=== PATIENT | female | born 1990 | race Caucasian/White ===

== ENCOUNTER 2020-06-28 01:19 | Emergency (ER) | payer MEDICAID, SELFPAY ==
[2020-06-28 01:24] VITALS: BP 129/75; PULSE 88; RESP 18; TEMP 37.4; O2SAT 99; BMI 21.1
--- NOTE | 2020-06-28 01:34 | US_ITS ---
WS: [id number] ULTRASOUND RENAL TECHNIQUE: Ultrasound examination of both kidneys. CLINICAL INFORMATION: kidney COMPARISON: None. FINDINGS: RIGHT: Right kidney is normal in size and appearance. Echogenicity: Normal. Cortical thickness: 1.2 cm; Normal. Hydronephrosis: None. Perinephric fluid: None. Right kidney measures: 11.6 cm x 5.1 cm x 5.2 cm. LEFT: Simple left renal cyst upper pole measuring 3.4 x 3.3 cm Left kidney is normal in size and appearance. Echogenicity: Normal. Cortical thickness: 1.4 cm; Normal. Hydronephrosis: None. Perinephric fluid: None. Left kidney measures: 10.5 cm x 5.6 cm x 6.4 cm. Normal visualized aorta. US/US renal BI* [id number] IMPRESSION: Normal kidneys and bladder. No hydronephrosis.
--- NOTE | 2020-06-28 01:34 | US_ITS ---
WS: [id number] ULTRASOUND EARLY TECHNIQUE: Transabdominal sonography of the pelvis was performed. Followed by transvaginal sonography to better evaluate the uterus and ovaries. CLINICAL INFORMATION: abd pain LMP: 04/23/2020 Beta hCG: Unknown. COMPARISON: None. FINDINGS: UTERUS AND GESTATIONAL SAC Intrauterine gestations: Estimated gestational age: 9w0d Yolk sac: 0.5 cm. Gilmer rump length (CRL): 2.3 cm. heart motion: 157 BPM. Subchorionic hemorrhage: None. OVARIES Right ovary: Normal. Left ovary: Normal. FREE FLUID None. 2. Estimated gestational age: 9w0d 3. Normal visualized cardiac activity. 4. Adnexa are normal. US/US OB <= 14 weeks fetus [id number] IMPRESSION: 1. Single live intrauterine .
--- NOTE | 2020-06-28 01:35 | ED_ITS ---
HPI - Female Genitourinary General: Chief complaint: Urogenital-Female Stated complaint: poss kidney infection/9 weeks Time Seen by Provider: 06/28/20 01:27 Source: patient Mode of arrival: ambulatory Limitations: no limitations History of Present Illness: HPI Narrative: 29-year-old female who is currently 9 weeks states she started having left flank pain yesterday. She states she has had pain with urination along with nausea and vomiting. States pain is sharp in nature and rates it an 8 out of 10. She has no history of kidney stones. Denies any worsening or improving factors. Associated symptoms: Reports abdominal pain and nausea; Deny headache(s) Review of Systems Const: Denies: fever(s), chills, body aches or change in appetite Eyes: Denies: blurry vision or eye discomfort ENMT: Denies: throat pain or dental pain Card: Denies: chest pain Resp: Denies: dyspnea GI: Reports: abdominal pain, nausea and vomiting : Reports: flank pain Musc: Denies: neck pain or back pain Skin/Breast: Denies: rash Neuro: Denies: headache(s) Psych: Denies: depression Brendon/Lymph: Denies: easy bruising All/Imm: Denies: urticaria Physical Exam Const: COMMON NORMALS: no acute distress, patient oriented x3 and healthy marisela earing HENMT: COMMON NORMALS: normocephalic and atraumatic HEAD & SCALP: normocephalic and atraumatic Eye: COMMON NORMALS: Equal, round and reactive pupils present and EOMs intact bilaterally PUPIL: Yes Equal, round and reactive pupils present Neck/C-Spine: COMMON NORMALS: full ROM and supple Chest: COMMONS NORMALS: normal inspection of the chest and normal palpation of entire chest wall Resp: COMMON NORMALS: normal respiratory effort, No retractions, No use of accessory muscles and clear to auscultation bilaterally AUSCULTATION: clear to auscultation bilaterally Cardio: COMMON NORMALS: regular rate, regular rhythm and No murmurs present (Cardio) RATE: regular rate RHYTHM: regular rhythm GI: COMMON NORMALS: Normal to inspection, nondistended, normoactive bowel sounds present, Soft to palpation, non-tender and no masses PALPATION: Yes Soft to palpation : COMMON NORMALS: No no CVA tenderness (left flank tenderness) BLADDER/KIDNEY EXAM: No no CVA tenderness (left flank tenderness) Back/Pelvis: COMMON NORMALS: negative for no CVA tenderness (left flank tenderness) Extremity: COMMON NORMALS: normal to inspection and full ROM Neuro: COMMON NORMALS: patient oriented x3, moves all extremities and no focal motor deficits Psych: COMMON NORMALS: mental status grossly normal, Normal thought process present and cooperative THOUGHT PROCESS: Normal thought process present Skin: COMMON NORMALS: no rashes or lesions noted and no wounds GENERAL SKIN EXAM: no rashes or lesions noted Course Vital Signs: Vital signs: Vital Signs Temperature 99.4 F 06/28/20 01:24 Pulse Rate 88 06/28/20 03:19 Respiratory Rate 18 06/28/20 03:19 Blood Pressure 106/68 06/28/20 03:19 Pulse Oximetry 99 06/28/20 03:19 MDM - Female MDM Narrative: Medical decision making narrative: Deb presents here with flank pain and does have a urinary tract infection. Ultrasound showed no hydro- with no signs of kidney stone. Patient abdominal exam is benign and she has no signs appendicitis. She is to follow-up with primary care doctor as scheduled in 1 day. We will start her on Keflex. She is to return if worsening. Lab Data: Labs: Lab Results 06/28/20 06/28/20 06/28/20 Range/Units 01:26 01:46 01:46 WBC 12.8 H (4.0-10.0) 10^3/ uL RBC 3.62 L (4.1-5.3) 10^6/u L Hgb 10.9 L (11.5-15.3) g/dL Hct 33.8 L (37.0-47.0) % MCV 93.4 (81-99) fL MCH 30.1 (28.0-34.0) pg MCHC 32.2 (30.0-36.0) g/dL RDW 13.2 (12.1-15.1) % Plt Count 275 (130-400) 10^3/c mm MPV 10.8 H (7.4-10.4) fL Neut % (Auto) 80.9 % Lymph % (Auto) 11.1 % [place] % (Auto) 7.1 % Eos % (Auto) 0.4 % Baso % (Auto) 0.2 % Neut # (Auto) 10.33 H (1.8-7.7) 10^3/u L Lymph # (Auto) 1.4 (0.8-4.8) 10^3/u L [place] # (Auto) 0.9 (0.2-0.9) 10^3/u L Eos # (Auto) 0.1 (0.0-0.8) 10^3/u L Baso # (Auto) 0.0 (0.0-0.1) 10^3/u L Nucleated RBC % (a uto) 0 % Nucleated RBCs # 0.0 /100WBC Sodium 133 L (136-145) mmol/L Potassium 3.7 (3.5-5.1) mmol/L Chloride 100 (98-107) mmol/L Carbon Dioxide 23 (22-29) mmol/L Anion Gap 13.7 (5-19) BUN 5 L (6-20) mg/dL Creatinine 0.4 L (0.5-0.9) mg/dL GFR Calculation 191.5 H (90-130) mL/min Glucose 96 (65-115) mg/dL Calculated Osmolal ity 272 L (285-295) mOsm/k g Calcium 8.6 (8.5-10.5) mg/dL Total Bilirubin 0.2 (0.15-1.2) mg/dL AST 15 (0-32) U/L ALT 10 (0-33) U/L Alkaline Phosphata se 36 (35-105) IU/L Total Protein 6.8 (6.6-8.7) g/dL Albumin 4.4 (3.5-5.2) g/dL Globulin 2.4 (1.3-4.6) g/dL Lipase 13 (13-60) U/L Urine Color Yellow (Yellow) Urine Appearance Cloudy (CLEAR) Urine pH 7 (5-7) Ur Specific Gravit y 1.010 (1.005-1.030) Urine Protein Neg (Negative) Urine Glucose (UA) Norm (Normal) Urine Ketones Negative (Negative) Urine Blood 2+ H (Negative) Urine Nitrate Negative (Negative) Urine Bilirubin Neg (NEGATIVE) Urine Urobilinogen Norm (Negative) mg/dL Ur Leukocyte Marguerite ase 1+ H (Negative) Urine RBC 0-4 H (0-2) /hpf Urine WBC 5-10 H (0-5) /hpf Ur Squamous Epith Cells 5-10 H (0-5) Amorphous Sediment 1+ Urine Bacteria 1+ H (NONE) Discharge Plan Discharge Patient Disposition: Home Clinical Impression: Urinary tract infection Qualifiers: Urinary tract infection type: acute cystitis Hematuria presence: without hematuria Qualified Code(s): N30.00 - Acute cystitis without hematuria Condition: Stable Prescriptions: [place] 5-325 mg tablet 1 tab PO Q6H PRN (Reason: pain) Qty: 8 RF: 0 Keflex 500 mg capsule 500 mg PO Q6H 7 Days Qty: 28 RF: 0 ondansetron 4 mg tablet,disintegrating 4 mg PO Q6H PRN (Reason: nausea and vomiting) Qty: 14 RF: 0 Discharge Orders: Discharge Order (Routine); Ordered 06/28/20 Ordered By: Isabela Disla Referrals: Levi Guerin MD [Primary Care Provider] - 1-3 days Discharge Diet: Advance as tolerated Discharge Activity: Resume usual activity Patient Instructions: Urinary Tract Infection in Women (ED) Discharge Date/Time: 06/28/20 03:22 Coding Level of Care Code ED Test Engine Mechanic for Chg Fwd Exam Comprehensive
[2020-06-28] MEDS: diphenhydrAMINE 50 mg/mL SDV 1mL IVP (01:49)
[2020-06-28] MEDS: metoclopramide 5 mg/mL SDV 2 mL 10 MG IVP (01:49)
[2020-06-28] MEDS: sodium chloride 0.9% 1,000 ML 999 ML IV (01:49)
[2020-06-28 01:55] LABS: Basophils % 0.2 %; Eosinophils # 0.1 10^3/uL (0.0-0.8); Eosinophils % 0.4 %; Hematocrit 33.8 % (37.0-47.0); Hemoglobin 10.9 g/dL (11.5-15.3); Lymphocytes # 1.4 10^3/uL (0.8-4.8); Lymphocytes % 11.1 %; Mean Corpuscular HGB Conc 32.2 g/dL (30.0-36.0); Mean Corpuscular Hemoglobin 30.1 pg (28.0-34.0); Mean Corpuscular Volume 93.4 fL (81-99); Mean Platelet Volume 10.8 fL (7.4-10.4); Monocytes # 0.9 10^3/uL (0.2-0.9); Monocytes % 7.1 %; Neutrophils # 10.33 10^3/uL (1.8-7.7); Neutrophils % 80.9 %; Nucleated Red Blood Cells % 0 %; Platelet Count 275 10^3/cmm (130-400); Red Blood Count 3.62 10^6/uL (4.1-5.3); Red Cell Distribution Width 13.2 % (12.1-15.1); White Blood Count 12.8 10^3/uL (4.0-10.0)
[2020-06-28 02:01] LABS: Glucose Urine UA Norm (Normal); Protein Urine Neg (Negative); Urine Appearance Cloudy (CLEAR); Urine Color Yellow (Yellow); pH Urine 7 (5-7)
[2020-06-28 02:02] LABS: Add Urine Microscopic? YES; Amorphous Sediment Urine 1+; Bacteria Urine 1+; Bilirubin Urine Neg (NEGATIVE); Blood Urine 2+ (Negative); Ketones Urine Negative (Negative); Leukocyte Esterase Urine 1+ (Negative); Nitrate Urine Negative (Negative); RBC Urine 0-4 /hpf (0-2); Urobilinogen Urine Norm (Negative)
[2020-06-28 02:10] LABS: Alanine Aminotransferase 10 U/L (0-33); Albumin Level 4.4 g/dL (3.5-5.2); Alkaline Phosphatase 36 IU/L (35-105); Anion Gap 13.7 (5-19); Aspartate Amino Transferase 15 U/L (0-32); Blood Urea Nitrogen 5 mg/dL (6-20); Calcium 8.6 mg/dL (8.5-10.5); Carbon Dioxide 23 mmol/L (22-29); Chloride 100 mmol/L (98-107); Globulin 2.4 g/dL (1.3-4.6); Glomerular Filtration Rate 191.5 mL/min (90-130); Glucose 96 mg/dL (65-115); Lipase 13 U/L (13-60); Osmolality Calculated 272 mOsm/kg (285-295); Potassium 3.7 mmol/L (3.5-5.1); Sodium 133 mmol/L (136-145); Total Bilirubin 0.2 mg/dL (0.15-1.2); Total Protein 6.8 g/dL (6.6-8.7)
[2020-06-28] MEDS: cefTRIAXone 1,000 MG in sodium chloride 0.9% (plus) 50 ML 100 MG IV (02:23)
--- NOTE | 2020-06-28 02:31 | PC.NURSE ---
addendum to abdominal assessment: pt is , original assessment entered in error
--- NOTE | 2020-06-28 02:35 | PC.NURSE ---
i agree with this assessment
[2020-06-28] MEDS: HYDROcodone-acetaminophen 5-325 mg Tablet 1 TAB PO (03:05)
--- NOTE | 2020-06-28 03:06 | PC.NURSE ---
prior to morphine adm, pt states she does not have a ride home. Dr notified. order modified to [place] PO
[2020-06-28 03:19] VITALS: BP 106/68; PULSE 88; RESP 18; O2SAT 99
== END 2020-06-28 03:22 | disposition home or self-care (01) ==
PROVIDERS: Emergency Provider Emergency Medicine; PCP Family Medicine
DX: O23.11 Infections of bladder in pregnancy, first trimester (principal); Z3A.09 9 weeks gestation of pregnancy
CPT/HCPCS: 12345; 36415; 76770; 76801; 76857; 80053; 81001; 81003; 83690; 85025; 96365; 96375; 99283; 99284; J0696; J1200; J2765; J7030

== ENCOUNTER 2021-01-22 06:00 | Inpatient (IN) | payer MEDICAID, SELFPAY ==
[2021-01-22] VITALS (51 sets, daily range): BP systolic 107–160; BP diastolic 56–100; PULSE 64–104; RESP 16–34; TEMP 36–37.2; O2SAT 96–98; BMI 27.3
[2021-01-22] MEDS: lactated ringers 1,000 ML 999 ML IV (06:09)
[2021-01-22 06:17] LABS: Basophils % 0.3 %; Eosinophils % 0.3 %; Hematocrit 29.6 % (37.0-47.0); Lymphocytes # 2.9 10^3/uL (0.8-4.8); Lymphocytes % 22.5 %; Mean Corpuscular HGB Conc 30.4 g/dL (30.0-36.0); Mean Corpuscular Hemoglobin 24.1 pg (28.0-34.0); Mean Corpuscular Volume 79.1 fL (81-99); Mean Platelet Volume 11.9 fL (7.4-10.4); Monocytes # 0.8 10^3/uL (0.2-0.9); Monocytes % 5.8 %; Neutrophils # 9.05 10^3/uL (1.8-7.7); Nucleated Red Blood Cells % 0 %; Platelet Count 310 10^3/cmm (130-400); Red Blood Count 3.74 10^6/uL (4.1-5.3); Red Cell Distribution Width 13.4 % (12.1-15.1); White Blood Count 12.9 10^3/uL (4.0-10.0)
[2021-01-22] MEDS: lidocaine 2% INJ 20 mL INJECTION (07:02)
[2021-01-22] MEDS: oxytocin 30 UNIT/500 ML BAG 600 UNIT IV (07:02)
--- NOTE | 2021-01-22 07:33 | P.PCNOB_ITS ---
Delivery Note: Date of delivery: January 22, 2021 Pre-Delivery Course: The patient is a 30-year-old 3 para 2-0-0-2 at 39 weeks who presented to the hospital in active labor. Her been unremarkable. Her blood type is O+ she is GBS negative. She is Covid negative. Her initial drug screen was positive for opiates, but a subsequent drug screens were negative. Her glucose screen was negative as well. Delivery: DELIVERY: The patient progressed to complete without difficulty. She delivered a female with a weight of 8 pounds 7 ounces with Apgars of 8, 9. The baby was delivered from the NATALYA position. The baby was then completely delivered and placed on the mother's abdomen. The cord was then clamped and cut. There was no nuchal cord. Meconium was noted. The placenta and 3 vessel cord were delivered intact shortly thereafter. The perineum and vaginal vault were carefully examined. A relatively superficial second-degree posterior midline laceration was noted. 2% lidocaine was used anesthetize the area. 3-0 Vicryl was then used to repair the laceration in the usual fashion. Both the mother and the baby were in stable condition. A&P Assessment and plan (1) 40 weeks gestation of : Routine care accepted the patient also desires have a tubal ligation. That we performed later today. Status: Acute (2) Spontaneous vaginal delivery: Status: Acute (3) Sterilization consult: Status: Acute Coding Level of Care Code Acute Computer Education Professor for Chg Fwd Diagnoses 40 weeks gestation of Z3A.40 Spontaneous vaginal delivery O80 Sterilization consult Z30.09
--- NOTE | 2021-01-22 07:50 | PC.NURSE ---
Spoke with smokehouse worker Greta who put tubal on for 5pm this evening.
--- NOTE | 2021-01-22 07:57 | P.HP_ITS ---
Providers/Chief Complaint Admitting Physician: Levi Guerin MD Primary Care Provider: Levi Guerin MD Chief Complaint: contractions HPI CONSERVATION OR HERITAGE ARCHITECT History of Present Illness Deb Wilburn is a 30 year old female 3 female. This morning she had an unremarkable delivery of a healthy-appearing female infant. Earlier in her she had expressed a desire for sterilization. We discussed the risks of a sterilization including the risks of bleeding, infection, and damage intra-abdominal organs. We also discussed the potential for becoming again despite a successful tubal ligation and also discussed the increased risk of a ectopic associate with stabilization as well. We also discussed alternatives including IUDs and Nexplanon. After this discussion she made it very clear that she wants to have a tubal ligation performed. Present Details : 3 Para: 2 Date of Last Menstrual Period: 06/20/20 Calculated Date of Delivery: 03/27/21 Gestational Age Based on Last Menstrual Period: 30 Labs Rubella: Immune RPR: Negative GBS: Negative Review of Systems General: Reports: 10 or more systems reviewed and unremarkable except in HPI and below Const: Reports: fatigue; Denies: fever(s) Eyes: Denies: change in vision Card: Denies: chest pain Musc: Reports: back pain Brendon/Lymph: Denies: easy bruising Medications/Allergies Home Medications Medication Instructions Recorded Confirmed Last Taken Type hydrocodone-acetaminophen [[place]] 1 tab PO Q6H PRN #8 tab 06/28/20 Unknown Rx ondansetron 4 mg PO Q6H PRN #14 tab 06/28/20 Unknown Rx Allergies Allergy/AdvReac Type Severity Reaction Status Date / Time No Known Allergies Allergy Verified 06/28/20 01:29 Vitals/I&O/Wt Last Vital Signs Temp 96.8 F L 01/22/21 07:35 Pulse 89 01/22/21 07:45 Resp 16 01/22/21 05:56 BP 140/89 01/22/21 07:45 01/21/21 01/22/21 01/22/21 22:59 06:59 14:59 Intake Total 1300 / 1300 Balance 1300 / 1300 Weight last 48 hrs Weight 175 lb Physical Exam Const: COMMON NORMALS: patient oriented x3 and alert HENMT: COMMON NORMALS: moist oral mucous membranes HEAD & SCALP: normal to inspection Chest: COMMONS NORMALS: normal inspection of the chest Resp: COMMON NORMALS: clear to auscultation bilaterally AUSCULTATION: clear to auscultation bilaterally Cardio: COMMON NORMALS: regular rate and regular rhythm RATE: regular rate RHYTHM: regular rhythm GI: INSPECTION: Yes normal to inspection and Yes other (Gravid) Extremity: COMMON NORMALS: normal to inspection Neuro: COMMON NORMALS: patient oriented x3, moves all extremities and no sensory deficits noted SENSORIUM/ORIENTATION: Yes alert Psych: COMMON NORMALS: mental status grossly normal Skin: COMMON NORMALS: no rashes or lesions noted GENERAL SKIN EXAM: no ra shes or lesions noted Data : 01/22/21 05:59 A&P Assessment and plan (1) Spontaneous vaginal delivery: Status: Acute (2) Sterilization consult: We will set up the patient for a tube ligation today at 5:00. The patient will will be n.p.o. after 9 AM. Status: Acute (3) 40 weeks gestation of : Status: Acute Attestations Medical Necessity Statement*: Anticipate the patient will be in the hospital for routine and post tubal care. She will likely be discharged tomorrow morning. Coding Level of Care Code Acute Extrusion Die Repair Manager for Chg Fwd Diagnoses Spontaneous vaginal delivery O80 Sterilization consult Z30.09 40 weeks gestation of Z3A.40
[2021-01-22] MEDS: docusate sodium 100 mg Capsule PO ×2 (09:22→19:00)
[2021-01-22] MEDS: ibuprofen 800 mg tablet PO ×3 (09:22→21:01)
[2021-01-22] MEDS: lanolin oint 7 gm 1 APPLIC TOPICAL (09:22)
[2021-01-22] MEDS: benzocaine-menthol 78 gm Canister 1 SPRAY TOPICAL (09:22)
[2021-01-22] MEDS: prenatal vitamin Capsule 1 CAP PO (09:22)
--- NOTE | 2021-01-22 15:23 | ANES.PREANE2 ---
Pre-Anesthetic Assessment Pre-Anesthetic Assessment: Height/Weight: Height 1.7 m Weight 79.379 kg Temp Pulse Resp BP 98.5 F 92 16 152/70 01/22/21 12:58 01/22/21 14:37 01/22/21 12:58 01/22/21 14:37 Preop Diagnosis: Undesired fertility Proposed Procedure: Operation Date: 01/22/21 17:20 Proposed Procedures p Bilateral Tubal Ligation(Not Applicable) - Levi Guerin MD Familial anesthetic complications: None Was Beta Carlos taken within 24 hours: N/A Last intake: NPO since 899 (ate biscuits and gravy) Social: Social History: No alcohol Exam: Pre-Anes Outpt Exam: alert, oriented x 3, clear to auscultation bilaterally and regular rate & rhythm Airway: MP: 3 Dentition: Full CV/HEM: CV/HEM: Anemia Anesthetic Plan: ASA status: 2 Anesthesia: General Other: RSI Risk of > 500 ml blood loss (7ml/kg in children): No Meds/Allergies Current Medications: Current Medications Generic Name Dose Route Start Last Admin Trade Name Freq PRN Reason Stop Dose Admin Benzocaine 1 spray 01/22/21 08:07 01/22/21 09:22 Benzocaine-Menth ol 78 Gm Canister TOPICAL 1 can PRN PRN Administration PAIN Docusate Sodium 100 mg 01/22/21 09:00 01/22/21 09:22 Docusate Sodium 100 Mg Capsule PO 100 mg BID MILDRED Administration Ibuprofen 800 mg 01/22/21 09:00 01/22/21 14:15 Ibuprofen 800 Mg Tablet PO 800 mg TID MILDRED Administration Lanolin 1 applic 01/22/21 08:07 01/22/21 09:22 Lanolin Oint 7 G m TOPICAL 1 tube PRN PRN Administration DRYNESS Multivit/ Folic Acid/Iron 1 cap 01/22/21 09:00 01/22/21 09:22 Vitamin Capsule PO 1 cap DAILY MILDRED Administration PFSH Anesthesia Female Reproductive History: Date of last menstrual period: 06/20/20 : 3 Data Anesthesia CBC & Chem 7: 01/22/21 05:59 Other Labs: Laboratory Results - last 48 hr 01/22/21 05:59 WBC 12.9 H RBC 3.74 L Hgb 9.0 L Hct 29.6 L MCV 79.1 L MCH 24.1 L MCHC 30.4 RDW 13.4 Plt Count 310 MPV 11.9 H Neut % (Auto) 70.0 Lymph % (Auto) 22.5 [place] % (Auto) 5.8 Eos % (Auto) 0.3 Baso % (Auto) 0.3 Neut # (Auto) 9.05 H Lymph # (Auto) 2.9 [place] # (Auto) 0.8 Eos # (Auto) 0.0 Baso # (Auto) 0.0 Nucleated RBC % (auto) 0 Nucleated RBCs # 0.0 Cardiac Studies: No Data to Display
[2021-01-22] MEDS: sodium chloride 0.9% 1,000 ML 30 ML IV (16:25)
--- NOTE | 2021-01-22 17:23 | PM.OP ---
Operative Report Date of procedure: January 22, 2021 Pre-op Diagnosis: Undesired fertility Post-op diagnosis: same Procedure Done: 1. minilaparotomy bilateral tubal ligation using a modified [place] technique Specimens removed/disposition: Bilateral fallopian tube segments with the right segment being tagged Pathology: other Pathology: Bilateral fallopian tube segments with the right segment being tagged Anesthesia: General Estimated blood loss (mL): 5 Complications: None Condition: stable Disposition: floor Brief History: Refer to history and physical Procedure: The patient was brought back to the operating room where anesthesia was found to be adequate. 10 mL of 0.5% bupivacaine was then used to pre-anesthetize the area just inferior to the umbilicus. A #15 blade was then used to make a 3 cm transverse incision just inferior to the umbilicus. I then dissected down to the underlying subcutaneous tissue until arriving at the fascia. The fascia was then nicked with the scalpel. The fascial incision was extended manually. I identified the fundus of the uterus and followed it to the left fallopian tube. The fallopian tube was then followed to the fimbria. The tube was then ligated, cut, and cauterized in a modified [place] fashion using 0 chromic. The right fallopian tube was then identified and followed through to the fimbria. It was ligated, cut, and cauterized in similar fashion. The right fallopian tube was tagged. Both fallopian tubes had excellent hemostasis. The fascia was reapproximated using 0 Vicryl in running stitch. The subcutaneous tissue was carefully examined and no further bleeding was noted. The skin was then reapproximated using 4-0 Vicryl in a running subcuticular stitch. A sterile dressing was placed. All counts were correct x2. The patient was moved to the recovery room in stable condition. Associated Problem List Diagnoses (1) Sterilization consult: (2) Spontaneous vaginal delivery:
--- NOTE | 2021-01-22 17:44 | ANE.PACU2 ---
Inpatient post-anesthesia follow up: Airway intact: Yes Vital signs: Temperature 98.5 F Pulse Rate 70 Respiratory Rate 18 Blood Pressure 134/86 Pulse Oximetry 96 Oxygen Delivery Me thod Room Air Oxygen Flow Rate Fraction of Inspir ed Oxygen Hydration adequate: Yes Nausea and vomiting: No Pain level: 2 Mental status: Baseline
--- NOTE | 2021-01-22 18:22 | PC.NURSE ---
Patient received back from surgery. Patient requesting to walk to bathroom. Patient assisted to bathroom, voided, and then assisted to bed. Patient requests to change back in to her clothes and out of gown. Marking Machine Tender assisted patient. Patient then requesting dinner tray. Patient reports no nausea. Will continue to monitor.
[2021-01-22] MEDS: HYDROcodone-acetaminophen 5-325 mg Tablet PO (19:01)
[2021-01-22 19:45] LABS: Hemoglobin 8.6 g/dL (11.5-15.3); Mean Corpuscular HGB Conc 30.7 g/dL (30.0-36.0); Mean Corpuscular Hemoglobin 24.6 pg (28.0-34.0); Platelet Count 279 10^3/cmm (130-400); Red Cell Distribution Width 13.5 % (12.1-15.1); White Blood Count 14.6 10^3/uL (4.0-10.0)
[2021-01-23] MEDS: HYDROcodone-acetaminophen 5-325 mg Tablet PO (00:34)
[2021-01-23 00:36] VITALS: BP 123/75; PULSE 81
[2021-01-23 00:37] VITALS: TEMP 37.1
--- NOTE | 2021-01-23 03:53 | PM.OBGYDC ---
Discharge Providers INTERACTIVE MEDIA MARKETING DIRECTOR Date of Admission: 01/22/21 06:00 Date of Discharge: 01/23/21 Attending Provider at Admission: Levi Guerin MD Attending Provider at Discharge: Levi Guerin MD Primary Care Provider: Levi Guerin MD Diagnoses at Discharge Discharge Diagnosis (1) Sterilization consult: Status: Acute (2) Spontaneous vaginal delivery: Status: Acute Reason for Visit Reason for Visit: contractions Hospital Course Hospital Course The patient presented to the hospital in active labor. Please see vaginal delivery report for details regarding her labor. Her course has been unremarkable. She did have a tubal ligation performed which was also unremarkable. She has breast-fed well. Her bleeding has been within normal limits. Her pain is been well controlled. There have been no concerns. Information Peripartum Data: Delivery Method: Vaginal Physical Exam Narrative: EXAM NARRATIVE: She is in no acute distress Lungs are clear auscultation bilaterally Her heart has a regular rate and rhythm Her fundus is below the umbilicus and firm Her dressing is clean, dry and intact Her extremities have trace edema Discharge Data Data Completed and Pending: Pending at discharge Category Date Time Status Pathology: Surgic al [PTH] Routine Pth 01/22/21 17:20 Ordered Labs from last 24 hours 01/22/21 01/22/21 19:39 05:59 WBC 14.6 H 12.9 H RBC 3.50 L 3.74 L Hgb 8.6 L 9.0 L Hct 28.0 L 29.6 L MCV 80.0 L 79.1 L MCH 24.6 L 24.1 L MCHC 30.7 30.4 RDW 13.5 13.4 Plt Count 279 310 MPV 12.0 H 11.9 H Neut % (Auto) 70.0 Lymph % (Auto) 22.5 [place] % (Auto) 5.8 Eos % (Auto) 0.3 Baso % (Auto) 0.3 Neut # (Auto) 9.05 H Lymph # (Auto) 2.9 [place] # (Auto) 0.8 Eos # (Auto) 0.0 Baso # (Auto) 0.0 Nucleated RBC % (a uto) 0 Nucleated RBCs # 0.0 Vitals: Last Vital Signs Temp 98.8 F 01/23/21 00:37 Pulse 81 01/23/21 00:36 Resp 18 01/22/21 18:23 BP 123/75 01/23/21 00:36 Pulse Ox 98 01/22/21 17:50 Discharge Plan Discharge Patient Disposition: Home Condition: Stable Prescriptions: New ibuprofen 800 mg Tablet 800 mg PO TID Qty: 45 RF: 0 hydrocodone-acetaminophen 5-325 mg Tablet 1 - 2 tab PO Q6H PRN (Reason: Moderate To Severe Pain) Qty: 10 RF: 0 -U 106.5-1 mg Capsule 1 cap PO DAILY Qty: 90 RF: 3 Discontinued hydrocodone-acetaminophen [[place]] 5-325 mg tablet 1 tab PO Q6H PRN (Reason: pain) Qty: 8 RF: 0 ondansetron 4 mg tablet,disintegrating 4 mg PO Q6H PRN (Reason: nausea and vomiting) Qty: 14 RF: 0 Discharge Orders: Discharge Order (Routine); Ordered 01/23/21 Ordered By: Levi Guerin Referrals: Levi Guerin MD [Primary Care Provider] - 01/27/21 (Please set up 6-week check as well) Discharge Diet: Usual diet Discharge Activity: Limit activity as instructed Discharge Attestations INTERACTIVE MEDIA MARKETING DIRECTOR Time Spent in Discharge Care*: less than 30 min Specific Discharge Activities: Specific discharge activities: educating patient Coding Level of Care Code Acute Retail Marketing Manager for [employer] Fwd Diagnoses Sterilization consult Z30.09 Spontaneous vaginal delivery O80
[2021-01-23 04:50] VITALS: BP 112/67; PULSE 75; TEMP 36.4
[2021-01-23 09:10] VITALS: BP 115/80; PULSE 70; RESP 17; O2SAT 98
== END 2021-01-23 09:12 | disposition home or self-care (01) | DRG 798 ==
LOC: OPOB 07:26 → OBGYN 07:26
PROVIDERS: Admitting Provider Family Medicine; PCP Family Medicine; Visit Provider Family Medicine
PROC: 10E0XZZ Delivery of Products of Conception, External Approach (ICD-10-PCS; CPT 58605; principal; 2021-01-22 17:00)
DX: O77.0 Labor and delivery complicated by meconium in amniotic fluid (principal); Z37.0 Single live birth; O70.1 Second degree perineal laceration during delivery; Z3A.40 40 weeks gestation of pregnancy; Z87.891 Personal history of nicotine dependence; Z30.2 Encounter for sterilization
CPT/HCPCS: 12345; 36415; 59409; 85025; 85027; 88302; 96365; J1100; J1885; J2405; J2704; J3010; J3490; J7030